=== PATIENT | female | born 1965 | race Caucasian/White ===

== ENCOUNTER → 2020-12-30 | Outpatient (CLI) | payer OTHER ==
[~2020-12-30] MED LIST: BASAGLAR K100 UNIT/1 SC; BUSPIRONE HCL15 MG PO; CETIRIZINE HCL10 MG PO; CORGARD40 MG PO; CRESTOR5 MG PO; GLIPIZIDE ER10 MG PO; IBUPROFEN600 MG PO; LEXAPRO20 MG PO; MUCINEX1200 MG PO; NORFLEX 100 MG100 MG PO; NORVASC 5 MG TAB5 MG PO; OMEPRAZOLE20 MG PO; ROXICODONE5 MG PO; SYNTHROID150 MCG PO; VITAMIN B-1250 MCG PO; VITAMIN D3 PO; VITAMIN D31000 UNI1 PO; VITAMIN D350000 UNIT PO; ZANAFLEX4 MG PO
[2020-12-30 12:31] LABS: HEMOGLOBIN 9.6 gm/dl (12.3-15.3); RED BLOOD COUNT 4.09 M/UL (4.00-5.10); WHITE BLOOD COUNT 2.3 K/UL (4.5-11.0)
[2020-12-31 08:13] LABS: VITAMIN D, 25-HYDROXY 51.1 ng/mL (30.0-100.0)
[2020-12-31 11:13] LABS: CREATININE, URINE 92.3 mg/dL (Not Estab.)
== END ==
LOC: MAMO 11:02
PROVIDERS: Nurse Practitioner Family
DX: M79.641 Pain in right hand (principal); M79.642 Pain in left hand; M54.9 Dorsalgia, unspecified; E11.22 Type 2 diabetes mellitus with diabetic chronic kidney disease; E78.5 Hyperlipidemia, unspecified; E03.9 Hypothyroidism, unspecified; N18.9 Chronic kidney disease, unspecified; E53.8 Deficiency of other specified B group vitamins; E55.9 Vitamin D deficiency, unspecified; E11.65 Type 2 diabetes mellitus with hyperglycemia; R93.89 Abnormal findings on diagnostic imaging of other specified body structures; N63.0 Unspecified lump in unspecified breast
CPT/HCPCS: 36415; 77066; 80053; 80061; 82043; 82105; 82570; 82607; 84439; 84443; 85025; G0279

== ENCOUNTER 2021-02-11 14:35 | Emergency (ER) | payer OTHER ==
[2021-02-11 15:58] LABS: HEMOGLOBIN 10.8 gm/dl (12.3-15.3); RED BLOOD COUNT 4.12 M/UL (4.00-5.10); WHITE BLOOD COUNT 2.2 K/UL (4.5-11.0)
== END 2021-02-11 21:39 | disposition home or self-care (01) ==
LOC: ER1 14:35
PROVIDERS: Physician Assistant
DX: K74.60 Unspecified cirrhosis of liver (principal); D61.818 Other pancytopenia; K92.1 Melena; I10 Essential (primary) hypertension; Z90.49 Acquired absence of other specified parts of digestive tract
CPT/HCPCS: 80053; 81001; 82150; 82272; 83690; 85025; 85610; 87086; 96374; 99284; C9113; Q9967

== ENCOUNTER → 2021-03-29 | Outpatient (CLI) | payer OTHER ==
[2021-03-29 13:38] LABS: HEMOGLOBIN 12.7 gm/dl (12.3-15.3); RED BLOOD COUNT 4.3 M/UL (4.00-5.10); WHITE BLOOD COUNT 1.9 K/UL (4.5-11.0)
[2021-03-29 14:41] LABS: BUN/CREATININE RATIO 12 (0-10)
[2021-03-30 11:16] LABS: CREATININE, URINE 89.5 mg/dL (Not Estab.)
== END ==
LOC: LAB 12:13
PROVIDERS: Nurse Practitioner Family
DX: E11.22 Type 2 diabetes mellitus with diabetic chronic kidney disease (principal); N18.30 Chronic kidney disease, stage 3 unspecified; E11.65 Type 2 diabetes mellitus with hyperglycemia; D50.9 Iron deficiency anemia, unspecified; M79.642 Pain in left hand; M79.641 Pain in right hand; M47.812 Spondylosis without myelopathy or radiculopathy, cervical region; M54.9 Dorsalgia, unspecified; G89.29 Other chronic pain; R20.0 Anesthesia of skin; E78.5 Hyperlipidemia, unspecified; E03.9 Hypothyroidism, unspecified; Z79.4 Long term (current) use of insulin
CPT/HCPCS: 36415; 80053; 80061; 82043; 82570; 82728; 83036; 84439; 84443; 85025

== ENCOUNTER → 2021-05-27 | Outpatient (CLI) | payer OTHER ==
[2021-05-27 12:43] LABS: HEMOGLOBIN 13.9 gm/dl (12.3-15.3); RED BLOOD COUNT 4.39 M/UL (4.00-5.10); WHITE BLOOD COUNT 3.4 K/UL (4.5-11.0)
[2021-05-27 13:05] LABS: BUN/CREATININE RATIO 11 (0-10)
== END ==
LOC: LAB 10:28
PROVIDERS: Nurse Practitioner Family
DX: E11.22 Type 2 diabetes mellitus with diabetic chronic kidney disease (principal); E11.65 Type 2 diabetes mellitus with hyperglycemia; M54.12 Radiculopathy, cervical region; I70.90 Unspecified atherosclerosis; E78.5 Hyperlipidemia, unspecified; E53.8 Deficiency of other specified B group vitamins; E55.9 Vitamin D deficiency, unspecified; K74.60 Unspecified cirrhosis of liver; K72.90 Hepatic failure, unspecified without coma; N18.30 Chronic kidney disease, stage 3 unspecified; Z79.4 Long term (current) use of insulin
CPT/HCPCS: 36415; 80053; 80061; 82140; 82607; 83036; 85025

== ENCOUNTER → 2021-08-09 | Outpatient (CLI) | payer OTHER ==
[~2021-08-09] MED LIST changes: +LASIX TAB 20 MG20 MG PO
== END ==
LOC: EXRD 13:50
DX: R06.02 Shortness of breath (principal); R31.9 Hematuria, unspecified; K56.41 Fecal impaction; R91.8 Other nonspecific abnormal finding of lung field
CPT/HCPCS: 71046; 74018

== ENCOUNTER 2021-08-10 16:21 | Emergency (ER) | payer OTHER ==
[~2021-08-10 16:21] MED LIST changes: -LASIX TAB 20 MG20 MG PO
[2021-08-10 16:50] LABS: HEMOGLOBIN 14.5 gm/dl (12.3-15.3); RED BLOOD COUNT 4.19 M/UL (4.00-5.10); WHITE BLOOD COUNT 5.3 K/UL (4.5-11.0)
[2021-08-10 17:16] LABS: BUN/CREATININE RATIO 29 (0-10)
[2021-08-10] MEDS ORDERED: LASIX TAB 20 MG20 MG PO (19:10)
== END 2021-08-10 19:50 | disposition home or self-care (01) ==
LOC: ER1 16:21
PROVIDERS: Emergency Medicine
DX: E11.65 Type 2 diabetes mellitus with hyperglycemia (principal); J90 Pleural effusion, not elsewhere classified; R79.89 Other specified abnormal findings of blood chemistry; Z20.822 Contact with and (suspected) exposure to COVID-19; E66.9 Obesity, unspecified
CPT/HCPCS: 71045; 80053; 82550; 82553; 82962; 83874; 83880; 84484; 85025; 93005; 96374; 96375; 99285; J1940; U0002

== ENCOUNTER → 2021-09-07 | Outpatient (CLI) | payer OTHER ==
[~2021-09-07] MED LIST changes: +LASIX TAB 20 MG20 MG PO
[2021-09-07 12:00] LABS: HEMOGLOBIN 13.4 gm/dl (12.3-15.3); RED BLOOD COUNT 3.92 M/UL (4.00-5.10); WHITE BLOOD COUNT 3.5 K/UL (4.5-11.0)
[2021-09-08 07:10] LABS: A/G RATIO 0.9 (1.2-2.2); ALKALINE PHOSPHATASE, S 157 IU/L (44-121); ALT (SGPT) 44 IU/L (0-32); AST (SGOT) 48 IU/L (0-40); BUN 9 mg/dL (6-24); BUN/CREATININE RATIO 12 (9-23); CALCIUM, SERUM 8.5 mg/dL (8.7-10.2); CARBON DIOXIDE, TOTAL 27 mmol/L (20-29); CHLORIDE, SERUM 106 mmol/L (96-106); CHOLESTEROL, TOTAL 115 mg/dL (100-199); CREATININE, SERUM 0.73 mg/dL (0.57-1.00); EGFR IF AFRICN AM 106 (>59); EGFR IF NONAFRICN AM 92 (>59); ESTIM. AVG GLU (EAG) 163 mg/dL (.); GLUCOSE, SERUM 124 mg/dL (65-99); HDL CHOLESTEROL 59 mg/dL (>39); HEMOGLOBIN A1C 7.3 % (4.8-5.6); LDL CHOLESTEROL CALC 39 mg/dL (0-99); LDL/HDL RATIO 0.7 ratio (0.0-3.2); POTASSIUM, SERUM 3.8 mmol/L (3.5-5.2); PROTEIN, TOTAL, SERUM 5.7 g/dL (6.0-8.5); SODIUM, SERUM 141 mmol/L (134-144); T. CHOL/HDL RATIO 1.9 ratio (0.0-4.4); TRIGLYCERIDES 89 mg/dL (0-149)
[2021-09-08 08:15] LABS: VITAMIN D, 25-HYDROXY 34.9 ng/mL (30.0-100.0)
[2021-09-08 10:15] LABS: CREATININE, URINE 63.1 mg/dL (Not Estab.)
== END ==
LOC: LAB 11:18
PROVIDERS: Nurse Practitioner Family
DX: E11.22 Type 2 diabetes mellitus with diabetic chronic kidney disease (principal); N18.30 Chronic kidney disease, stage 3 unspecified; M47.22 Other spondylosis with radiculopathy, cervical region; M50.10 Cervical disc disorder with radiculopathy, unspecified cervical region; K72.90 Hepatic failure, unspecified without coma; E78.5 Hyperlipidemia, unspecified; R53.83 Other fatigue; K21.9 Gastro-esophageal reflux disease without esophagitis; Z00.00 Encounter for general adult medical examination without abnormal findings; E53.8 Deficiency of other specified B group vitamins; E55.9 Vitamin D deficiency, unspecified
CPT/HCPCS: 36415; 80053; 80061; 82043; 82140; 82570; 82607; 83036; 84439; 84443; 85025

== ENCOUNTER 2021-12-06 13:14 | Emergency (ER) | payer OTHER ==
[2021-12-06 16:03] LABS: BUN/CREATININE RATIO 18 (0-10)
[2021-12-06 16:42] LABS: HEMOGLOBIN 12.1 gm/dl (12.3-15.3); RED BLOOD COUNT 3.48 M/UL (4.00-5.10); WHITE BLOOD COUNT 6.8 K/UL (4.5-11.0)
== END 2021-12-06 21:35 | disposition home or self-care (01) ==
LOC: ER1 13:14
PROVIDERS: Emergency Medicine
DX: S70.12XA Contusion of left thigh, initial encounter (principal); S80.02XA Contusion of left knee, initial encounter; J98.11 Atelectasis; W19.XXXA Unspecified fall, initial encounter; J90 Pleural effusion, not elsewhere classified
CPT/HCPCS: 70450; 71045; 72125; 73552; 73564; 73590; 80053; 81001; 82140; 82550; 82553; 82962; 83690; 84484; 85025; 99284; Q9967